=== PATIENT | female | born 1960 | race Native Hawaiian/Other Pacific Islander ===

== ENCOUNTER 2019-09-30 13:12 | Outpatient (CLI) | payer OTHER ==
[2019-09-30 14:04] LABS: PLATELET COUNT 295 K/uL (152-353)
[2019-09-30 16:52] LABS: POTASSIUM 4.5 mmol/L (3.6-5.2)
== END 2019-09-30 19:50 | disposition home or self-care (01) ==
LOC: LAB 13:12
PROVIDERS: Nurse Practitioner Family
DX: E11.9 Type 2 diabetes mellitus without complications (principal); I10 Essential (primary) hypertension; E03.9 Hypothyroidism, unspecified
CPT/HCPCS: 80053; 80061; 83036; 84443; 85027

== ENCOUNTER 2019-10-05 17:43 | Outpatient (CLI) | payer OTHER | END 2019-10-05 21:18 | disposition home or self-care (01) | LOC: LAB 17:43 | DX: R94.5 Abnormal results of liver function studies (principal); R53.83 Other fatigue | CPT/HCPCS: 80074; 82306; 82607 ==

== ENCOUNTER 2021-03-30 09:45 | Outpatient (CLI) | payer OTHER ==
[2021-03-30 10:05] LABS: PLATELET COUNT 284 K/uL (152-353)
[2021-03-30 10:30] LABS: POTASSIUM 4.3 mmol/L (3.6-5.2)
== END 2021-03-30 19:22 | disposition home or self-care (01) ==
LOC: LABW 09:45
PROVIDERS: ATTEND Nurse Practitioner Family
DX: E11.65 Type 2 diabetes mellitus with hyperglycemia (principal); E03.9 Hypothyroidism, unspecified; E55.9 Vitamin D deficiency, unspecified; R63.1 Polydipsia
CPT/HCPCS: 36415; 80053; 80061; 82306; 83036; 84443; 85027